=== PATIENT | female | born 1960 | race Caucasian/White ===

== ENCOUNTER → 2018-11-19 14:56 | Outpatient (CLI) | payer OTHER, SELFPAY ==
--- NOTE | 2018-11-19 | DI.MG.S_ITS ---
BILATERAL DIGITAL SCREENING MAMMOGRAM 3D/2D WITH CAD: 11/19/2018 Comparison is made to exams dated: 05/23/2016 mammogram, 12/15/2014 mammogram, and 09/29/2013 mammogram - [facility]. There are scattered fibroglandular elements in both breasts. Current study was also evaluated with a Computer Aided Detection (CAD) system. No significant masses, calcifications, or other findings are seen in either breast. There has been no significant interval change. IMPRESSION: NEGATIVE There is no mammographic evidence of malignancy. A 1 year screening mammogram is recommended. This exam was interpreted at Station ID: [id number]. NOTE: For mammograms, a report in lay terms will be sent to the patient. Approximately 15% of breast malignancies will not be visualized mammographically. In the management of a palpable breast mass, a negative mammogram must not discourage biopsy of a clinically suspicious lesion. Electronically Signed By: Marily valentin/fernando:11/19/2018 16:36:48 letter sent: Normal Exam ACR BI-RADS Category 1: Negative 3341F
== END ==
PROVIDERS: PCP Nurse Practitioner Family; Visit Provider Nurse Practitioner Family
DX: Z12.31 Encounter for screening mammogram for malignant neoplasm of breast (principal)
CPT/HCPCS: 77063; 77067

== ENCOUNTER → 2020-03-15 08:11 | Outpatient (CLI) | payer OTHER, SELFPAY ==
[2020-03-15 10:31] LABS: Hemoglobin A1C% w Est Avg Glu 6.1 % (4.0-6.0)
[2020-03-15 10:42] LABS: Alanine Aminotransferase 31 IU/L (<35); Albumin 4.5 g/dL (3.5-5.0); Albumin Globulin Ratio 1.6 (1.0-2.8); Alkaline Phosphatase 83 U/L (38-126); Aspartate Aminotransferase 30 IU/L (14-36); BUN Creatinine Ratio 23.6 (6-22); Bilirubin Total 0.6 mg/dL (0.2-1.3); Blood Urea Nitrogen 17 mg/dL (7-17); Calcium 9.4 mg/dL (8.4-10.2); Carbon Dioxide 27 mmol/L (22-32); Chloride 103 mmol/L (98-107); Cholesterol 179 mg/dL (140-199); Estimated Glomerular Filt Rate > 60.0 mL/min (>60); Globulin 2.9 g/dL (1.7-4.1); Glucose 111 mg/dL (80-110); HDL Cholesterol 45 mg/dL (40-60); HEMOLYSIS < 15 (0-50); LDL Cholesterol Calculated 115 mg/dL (<100); Potassium 4.3 mmol/L (3.4-5.1); Sodium 138 mmol/L (137-145); Total Protein 7.4 g/dL (6.3-8.2); Triglycerides 95 mg/dL (35-150)
[2020-03-15 10:58] LABS: Vitamin D 25 Hydroxy (D3) 39.8 ng/mL (30.0-100.0)
[2020-03-15 11:05] LABS: TSH w/ Reflex to FT4 3.86 uIU/mL (0.47-4.68)
== END ==
PROVIDERS: PCP Internal Medicine; Referring Provider Internal Medicine; Visit Provider Internal Medicine
DX: I10 Essential (primary) hypertension (principal); R73.03 Prediabetes; Z13.220 Encounter for screening for lipoid disorders; M85.80 Other specified disorders of bone density and structure, unspecified site; E55.9 Vitamin D deficiency, unspecified; I47.1 Supraventricular tachycardia
CPT/HCPCS: 36415; 80053; 80061; 82306; 83036; 84443

== ENCOUNTER → 2020-03-19 10:24 | Outpatient (CLI) | payer OTHER, SELFPAY ==
--- NOTE | 2020-03-19 | DI.RAD.S_ITS ---
PROCEDURE: XR WRIST LT MIN 3V INDICATIONS: left wrist pain TECHNIQUE: Four views of the wrist were acquired. COMPARISON: None. FINDINGS: Bones: No fractures or dislocations. No suspicious bony lesions. Scaphoid view: No trauma. Soft tissues: No suspicious soft tissue calcifications. 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 Dictated by: Shawn Child M.D. on 03/19/2020 at 11:02 Approved by: Shawn Child M.D. on 03/19/2020 at 11:21
== END ==
PROVIDERS: PCP Internal Medicine; Referring Provider Internal Medicine; Visit Provider Internal Medicine
DX: M25.532 Pain in left wrist (principal); M19.042 Primary osteoarthritis, left hand
CPT/HCPCS: 73110

== ENCOUNTER → 2020-03-30 09:43 | Outpatient (CLI) | payer OTHER, SELFPAY ==
--- NOTE | 2020-03-30 10:14 | DI.MG.S_ITS ---
Patient Name: GERALDINE COLLAZO date: 1960 Sex: F Attending Physician: Jose Indications: Date: 03/30/2020 10:06 At the request of: WALTER LOOMIS Procedure: MM screening mammo BI BILATERAL DIGITAL SCREENING MAMMOGRAM 3D/2D WITH CAD: 03/30/2020 CLINICAL: Routine screening. Comparison is made to exams dated: 11/19/2018 mammogram, 05/23/2016 mammogram, and 12/15/2014 mammogram - [facility]. There are scattered fibroglandular elements in both breasts. Current study was also evaluated with a Computer Aided Detection (CAD) system. No significant masses, calcifications, or other findings are seen in either breast. There has been no significant interval change. IMPRESSION: NEGATIVE There is no mammographic evidence of malignancy. A 1 year screening mammogram is recommended. This exam was interpreted at Station ID: [id number]. NOTE: For mammograms, a report in lay terms will be sent to the patient. Approximately 15% of breast malignancies will not be visualized mammographically. In the management of a palpable breast mass, a negative mammogram must not discourage biopsy of a clinically suspicious lesion. Electronically Signed By: Isma cuellar/fernando:03/30/2020 10:53:15 letter sent: Normal Exam ACR BI-RADS Category 1: Negative 3341F
== END ==
PROVIDERS: PCP Internal Medicine; Referring Provider Internal Medicine; Visit Provider Internal Medicine
DX: Z12.31 Encounter for screening mammogram for malignant neoplasm of breast (principal); M85.88 Other specified disorders of bone density and structure, other site; Z78.0 Asymptomatic menopausal state
CPT/HCPCS: 77063; 77067; 77080

== ENCOUNTER → 2020-05-31 18:08 | Outpatient (CLI) | payer OTHER, SELFPAY ==
--- NOTE | 2020-05-31 | DI.MRI.S_ITS ---
PROCEDURE: MR WRIST LT WO CON INDICATIONS: fracture of unspecified carpal bone, left TECHNIQUE: Noncontrast coronal proton density fast spin echo and T2 fast spin echo with fat saturation; coronal 3-D gradient echo, axial T1 spin echo and T2 fast spin echo with fat saturation, sagittal T1 spin echo through the wrist. COMPARISON: [facility], CR, XR WRIST LT MIN 3V, 03/19/2020, 10:18. FINDINGS: Image quality: Excellent. Bones and cartilage: There is a nondisplaced, slightly comminuted intra-articular fracture of the distal radius extending into the radiocarpal and distal radial ulnar joints without step-off at the articular surfaces. Mild associated osseous edema is seen. Cystic changes in the distal ulna may be related to a prior impaction injury or chronic degenerative changes. The ulnar styloid is grossly intact. There is neutral ulnar variance. The scaphoid is intact. Chronic degenerative cystic changes are seen in the trapezoid bone. Mild degenerative changes are seen in the 1st carpometacarpal joint and the triscaphe joint. Carpal ligaments: The scapholunate and lunotriquetral ligaments appear intact. In the absence of intra-articular contrast, the extrinsic carpal ligaments are not well identified. On sagittal images, the pisohamate ligament appears intact. Triangular fibrocartilage complex: The triangular fibrocartilage appears intact. Tendons and soft tissues: The carpal tunnel structures appear normal, including the median nerve. The ulnar nerve appears normal within Guyon's canal. All six extensor tendon compartments demonstrate normal morphology, without pathologic tendon sheath fluid. No soft tissue ganglion cysts. Nonspecific subcutaneous edema is seen dorsal to the ulnar head. IMPRESSION: 1. Nondisplaced comminuted intra-articular fracture of the distal radius is seen with mild surrounding edema. No step-off at the articular surface is seen. 2. Mild edema and cystic changes in the distal ulna may be related to chronic degenerative changes and/or trabecular bone injury. 3. No significant ligament or tendon injury is seen. 4. Mild degenerative changes in the triscaphe joint and the 1st carpometacarpal joint. Dictated by: Scot Moffett M.D. on 06/01/2020 at 10:14 Approved by: Scot Moffett M.D. on 06/01/2020 at 10:29
== END ==
PROVIDERS: PCP Internal Medicine; Referring Provider Internal Medicine; Visit Provider Internal Medicine
DX: S52.572A Other intraarticular fracture of lower end of left radius, initial encounter for closed fracture (principal); S62.102D Fracture of unspecified carpal bone, left wrist, subsequent encounter for fracture with routine healing; X58.XXXA Exposure to other specified factors, initial encounter
CPT/HCPCS: 73221

== ENCOUNTER → 2021-09-07 08:16 | Outpatient (CLI) | payer OTHER, SELFPAY ==
--- NOTE | 2021-09-07 | DI.MG.S_ITS ---
BILATERAL DIGITAL SCREENING MAMMOGRAM 3D/2D WITH CAD: 09/07/2021 CLINICAL: Routine screening. Comparison is made to exams dated: 03/30/2020 mammogram, 11/19/2018 mammogram, and 05/23/2016 mammogram - [facility]. There are scattered fibroglandular elements in both breasts. Current study was also evaluated with a Computer Aided Detection (CAD) system. No significant masses, calcifications, or other findings are seen in either breast. There has been no significant interval change. IMPRESSION: NEGATIVE There is no mammographic evidence of malignancy. A 1 year screening mammogram is recommended. This exam was interpreted at Station ID: [id number]. NOTE: For mammograms, a report in lay terms will be sent to the patient. Approximately 15% of breast malignancies will not be visualized mammographically. In the management of a palpable breast mass, a negative mammogram must not discourage biopsy of a clinically suspicious lesion. Electronically Signed By: Barber Bullard M.D., jr/fernando:09/09/2021 08:53:54 letter sent: Normal Exam ACR BI-RADS Category 1: Negative 3341F
== END ==
PROVIDERS: PCP Naturopath; Referring Provider Internal Medicine; Visit Provider Internal Medicine
DX: Z12.31 Encounter for screening mammogram for malignant neoplasm of breast (principal)
CPT/HCPCS: 77063; 77067

== ENCOUNTER 2022-11-09 22:01 | Emergency (ER) | payer OTHER, SELFPAY ==
[2022-11-09 22:24] VITALS: BP 168/86; PULSE 65; RESP 16; TEMP 36.4; O2SAT 98; BMI 31.4
--- NOTE | 2022-11-09 23:14 | ED.WOUNDLAC ---
HPI - Wound/Laceration General Chief Complaint: Wound/Laceration Stated Complaint: L pinky lac Time Seen by Provider: 11/09/22 23:14 Source: patient Mode of arrival: Ambulatory Limitations: no limitations History of Present Illness HPI narrative: Patient is a 61-year-old female. Left-hand dominant who is here for evaluation of a cut to the tip of her left little finger. She states that while she was making dinner this evening she cut it on a mandolin. They tried to stop the bleeding at home but were unable to. They did clean it with some peroxide. No other injuries from the event. Related Data Previous Rx's Medication Instructions Recorded erythromycin 5 mg/gram (0.5 %) eye 0.5 inch EYE-LEFT TID 05/14/22 ointment Conjunctivitis #7 grams polymyxin B sulfate 10,000 2 drp EYE-LEFT TID Bacterial 05/16/22 unit-trimethoprim 1 mg/mL eye conjunctivitis #10 mL drops (Polytrim) Allergies Allergy/AdvReac Type Severity Reaction Status Date / Time No Known Drug Allergies Allergy Unverified 05/14/22 18:13 Review of Systems Musculoskeletal Musculoskeletal: Reports system reviewed and no additional complaints, except as documented Integumentary/Breasts Skin/Breast: Reports system reviewed and no additional complaints, except as documented Neurologic Neurologic: Reports system reviewed and no additional complaints, except as documented Patient History Social History Smoking Status: Never smoker Smoking Status: Never smoker Exam Initial Vital Signs Initial Vital Signs: Vital Signs Temperature 97.6 F 11/09/22 22:24 Pulse Rate 65 11/09/22 22:24 Respiratory Rate 16 11/09/22 22:24 Blood Pressure 168/86 H 11/09/22 22:24 Pulse Oximetry 98 11/09/22 22:24 Oxygen Delivery Method Room Air 11/09/22 22:24 Back/Spine/Pelvis Other: Patient with a very superficial skin avulsion to the distal aspect of the left little finger. The finger nail is not involved. There is oozing from area. Neuro Sensory Exam: no sensory deficits noted Course Vital Signs Vital signs: Vital Signs - 8 hr 11/09/22 22:24 11/10/22 00:16 Temperature 97.6 F Pulse Rate 65 62 Respiratory Rate 16 16 Blood Pressure 168/86 H 178/84 H Pulse Oximetry 98 98 Oxygen Delivery Method Room Air Room Air MDM - Wound/Laceration MDM Narrative Medical decision making narrative: The cut is a skin avulsion of the distal aspect of the left little finger. Unfortunately this is not amenable to stitches. There is no nail involvement. I did put some Gelfoam over the area and then covered it with a bandage. She was observed for short period of time and there did not appear to be any more active bleeding is the bandage was not becoming soiled. Will discharge the patient home with instructions to leave this on for the next 24 hours and then can remove the bandage and wash her hands like normal. She is no indication for radiologic studies. Low suspicion for any sort of infection. No indication for antibiotics. Patient expressed understanding and agreement. Discharge Plan Departure Patient Disposition: Home Clinical Impression: Avulsion of skin Activity Restrictions/Additional Instructions: I recommend that you leave the bandage in place for at least 24 hours. After that you can take it off and cover it with a regular Band-Aid as needed. After the bandage is removed you can wash your hands like normal you can also use topical antibiotic ointment. Return to the emergency department for new symptoms. Prescriptions: No Action erythromycin 5 mg/gram (0.5 %) ointment 0.5 inch EYE-LEFT TID Qty: 7 0RF polymyxin B sulf-trimethoprim [Polytrim] 10,000 unit- 1 mg/mL drops 2 drp EYE-LEFT TID Qty: 10 0RF Rx Instructions: Treat x5 days Referrals: Radha Gary ND [Primary Care Provider] - Stand Alone Forms: Patient Portal/API
[2022-11-10 00:16] VITALS: BP 178/84; PULSE 62; RESP 16; O2SAT 98
== END 2022-11-10 00:19 | disposition home or self-care (01) ==
PROVIDERS: Emergency Provider Emergency Medicine; PCP Naturopath
DX: S61.217A Laceration without foreign body of left little finger without damage to nail, initial encounter (principal); W26.0XXA Contact with knife, initial encounter
CPT/HCPCS: 99281; 99282

== ENCOUNTER → 2023-04-24 08:24 | Outpatient (CLI) | payer OTHER, SELFPAY ==
--- NOTE | 2023-04-24 | DI.MG.S_ITS ---
BILATERAL DIGITAL SCREENING MAMMOGRAM 3D/2D WITH CAD: 04/24/2023 CLINICAL: Routine screening. Comparison is made to exams dated: 09/07/2021 mammogram, 03/30/2020 mammogram, and 11/19/2018 mammogram - [facility]. There are scattered areas of fibroglandular density in both breasts (category b / 25%-50% glandular tissue). Current study was also evaluated with a Computer Aided Detection (CAD) system. No significant masses, calcifications, or other findings are seen in either breast. There has been no significant interval change. IMPRESSION: NEGATIVE There is no mammographic evidence of malignancy. A 1 year screening mammogram is recommended. Based on the Tyrer Cuzick model (a risk assessment model) the patient's lifetime risk is 5.8% and her 10 year risk is 2.6%. According to the ACR, ACS, and NCCN guidelines, an annual breast MRI exam along with mammogram is recommended if the patient's lifetime risk is 20% or greater. This exam was interpreted at Station ID: [id number]. NOTE: For mammograms, a report in lay terms will be sent to the patient. Approximately 15% of breast malignancies will not be visualized mammographically. In the management of a palpable breast mass, a negative mammogram must not discourage biopsy of a clinically suspicious lesion. Electronically Signed By: Carlos tamez/fernando:04/24/2023 12:59:53 letter sent: Normal Exam ACR BI-RADS Category 1: Negative 3341F
== END ==
PROVIDERS: PCP Naturopath; Referring Provider Naturopath; Visit Provider Naturopath
DX: Z12.31 Encounter for screening mammogram for malignant neoplasm of breast (principal)
CPT/HCPCS: 77063; 77067

== ENCOUNTER 2024-02-09 10:21 | Day surgery (SDC) | payer OTHER, SELFPAY ==
--- NOTE | 2024-02-09 | PATH_ITS ---
[facility] Accession Number: [id number] No. of containers..01 Tissue . 01 Material submitted: . colon - ASCENDING . 01 Diagnosis: ASCENDING COLON, BIOPSY: Sessile serrated adenoma. [facility] 02/12/2024 1100 Local . 01 Electronically signed: . Larry Burciaga MD, PhD, Pathologist NPI- [id number] . 01 Gross description: . Received in formalin with two patient identifiers and ascending colon, are two meza soft tissue fragments, both measuring 0.3 cm in greatest dimension. Submitted in A1. ([id number]) /MRV 02/11/2024 1729 Local . 01 Pathologist provided ICD-10: D12.2 . 01 CPT . 824296 Specimen Comment: A courtesy copy of this report has been sent to [phone] Performed at: [address] [id number] MD aJmes Beltran MD Phone: [phone]
[2024-02-09 10:46] VITALS: BP 112/69; PULSE 71; RESP 16; TEMP 37.1; O2SAT 99
[2024-02-09] MEDS: LACTATED RINGERS 1,000 ML 42 ML IV (11:01)
--- NOTE | 2024-02-09 11:26 | PM.HP.1 ---
History of Present Illness History of Present Illness Date Patient Seen: 02/09/24 Time Patient Seen: 11:28 Chief complaint: SD Narrative: 63-year-old healthy woman here for screening colonoscopy. Last colonoscopy 10 years ago normal. No family history of colon cancer. No abdominal concerns today. [facility] Social History Smoking Status: Never smoker alcohol intake: current Meds Home Medications and Allergies Allergies Allergy/AdvReac Type Severity Reaction Status Date / Time No Known Drug Allergies Allergy Verified 02/09/24 10:45 Exam Vital Signs (past 8 hours): - 02/09/24 10:46 Temperature 98.7 F Pulse Rate 71 Respiratory Rate 16 Blood Pressure 112/69 Pulse Oximetry 99 Oxygen Delivery Method Room Air Oxygen Delivery Method Room Air Narrative Exam Narrative: General adult woman alert oriented no acute distress Chest nonlabored respiration Extremities warm well perfused Assessment & Plan Assessment & Plan narrative: The patient requires colorectal screening and colonoscopy is recommended. Technical details were discussed. Risks, benefits, alternatives explained. Risks including but not limited to myocardial infarction, aspiration, bleeding, pain, missed lesion, incomplete examination, need for further radiographic studies, intestinal injury, and need for major abdominal surgery were discussed. All questions were answered to their satisfaction, and they are in agreement with this plan. Time-Based Coding :: [TOTAL MINUTES] spent with patient and on the chart (including review of chart, obtaining history, exam, reviewing outside data, placing orders, documenting exam and treatment plan, and counseling patient) on [DATE].
[2024-02-09 12:04] VITALS: BP 108/57; PULSE 68; RESP 12; TEMP 36.9; O2SAT 95
--- NOTE | 2024-02-09 12:06 | P.OP.COLON_ITS ---
Operative Date/Time/Diagnoses Date of procedure: 02/09/24 Time of procedure: 12:06 Pre-op diagnosis: Colorectal screening Post-op diagnosis: other (Colonic polyp x1) Procedure & Clinicians Study performed: Colonoscopy with polypectomy and tattoo application Same procedure as scheduled: Yes Indications: 63-year-old woman here for screening colonoscopy Surgeon: Ken Cummins Procedure Notes Procedure in detail: The history and physical was performed/updated and the patient is ASA class is 2. The procedure was discussed in detail with the patient. Potential risks complications including infection, bleeding, missed diagnosis, perforation, need for surgery, and were explained. Their questions were answered and informed consent was obtained. Patient was brought to the procedure room and placed standard monitoring equipment. The patient's vital signs were monitored continuously throughout the entire procedure. Prior to starting time-out was performed. The patient was placed in the left lateral recumbent position. Procedural sedation was administered by anesthesia. Examination began with a thorough inspection of the perianal area there was no evidence of fissures, fistulae, external hemorrhoids or cutaneous malignancy. The colonoscopy scope was then placed into the anal canal and was advanced to the cecum, which was identified by the ileocecal valve, the appendiceal orifice and the confluence of the taenia. The scope was then slowly withdrawn examining colon thoroughly in all directions, irrigating it of any residual stool. The scope was retroflexed within the rectum The patient tolerated the procedure well. They will be discharged once criteria are met. The prep was of good/excellent quality. The withdrawl time was 7 minutes. FINDINGS * Ascending colon 8 mm sessile polyp within a mucosal fold. Biopsy of the polyp was performed with Jumbo forceps but the entirety of it could not be removed. Tattoo was placed distal to the lesion. * Sigmoid diverticulosis * Internal hemorrhoids Specimen(s): other (Ascending colon polyp) Impression: Colonic polyp Post-procedure Plan for aftercare: Follow-up is dependent on pathology findings Disposition: same day surgery
[2024-02-09 12:09] VITALS: BP 97/52; PULSE 72; RESP 14; O2SAT 97
[2024-02-09 12:13] VITALS: BP 111/66; PULSE 67; RESP 14; O2SAT 98
[2024-02-09 12:18] VITALS: BP 105/66; PULSE 55; RESP 16; TEMP 36.6; O2SAT 99
== END 2024-02-09 12:29 | disposition home or self-care (01) ==
PROVIDERS: PCP Naturopath; Referring Provider Surgery; Visit Provider Surgery
PROC: 0DJD8ZZ Inspection of Lower Intestinal Tract, Via Natural or Artificial Opening Endoscopic (ICD-10-PCS; CPT 45378; principal; 2024-02-09 11:15)
DX: Z12.11 Encounter for screening for malignant neoplasm of colon (principal); K57.30 Diverticulosis of large intestine without perforation or abscess without bleeding; K64.8 Other hemorrhoids; D12.2 Benign neoplasm of ascending colon
CPT/HCPCS: 45381; 45380; J2704

== ENCOUNTER → 2024-11-28 10:45 | Outpatient (CLI) | payer OTHER, SELFPAY ==
--- NOTE | 2024-11-28 10:46 | DI.MG.S_ITS ---
MM screening mammo BI: 11/28/2024. BI-RADS: 1 CLINICAL: 64-year old female for bilateral screening mammogram. Tyrer-Cuzick lifetime risk of 5.4%. No personal or first-degree family history of breast cancer. PRIOR EXAMS 04/24/2023, 09/07/2021, 03/30/2020, 11/19/2018, 05/23/2016, 12/15/2014. MAMMOGRAPHY TECHNIQUE: 2D and 3D (tomosynthesis) digital mammographic views obtained, with additional images as needed for full coverage. Current study was also evaluated with a Computer Aided Detection (CAD) system. DENSITY B. There are scattered areas of fibroglandular density. MAMMOGRAPHY FINDINGS Bilateral: No suspicious mass, asymmetry, microcalcification, or other abnormality seen. IMPRESSION: * No evidence of malignancy. RECOMMENDATIONS Bilateral * Annual screening mammography. OVERALL ASSESSMENT CATEGORY BI-RADS-1: Negative. The [employer] recommends annual screening mammography beginning at age 40 for women with average risk of breast cancer. ELECTRONICALLY SIGNED: Isma Weiss M.D. on 11/28/2024 at 06:51:53 PM PT Interpreting Station ID: [id number]
--- NOTE | 2024-11-28 10:46 | DI.RAD.S_ITS ---
PROCEDURE: XR DEXA AXIAL SKELETON INDICATIONS: OSTEOPENIA COMPARISON: [facility], CR, XR DEXA AXIAL SKELETON, 03/30/2020, 10:17. FINDINGS: Lumbar Spine: Bone mineral density 0.81 g/cm2, T score -2.2, previously -1.4. Left Femoral Neck: Bone mineral density 0.68 g/cm2, T score -1.5, previously -0.7. Left Hip: Bone mineral density 0.88 g/cm2, T score -0.5, previously 0.2. Fracture Risk Calculation (when applicable): 10-year fracture risk of a major osteoporotic fracture 8.5 percent and of a hip fracture 0.9 percent. (T score greater or equal to -1.0 to: NORMAL) (T score from -1.1 to -2.4: OSTEOPENIA) (T score less than or equal to -2.5: OSTEOPOROSIS) IMPRESSION: Osteopenia. T-scores have declined compared to prior Follow-up guidelines as follows: Osteoporosis: Consider a repeat DEXA and Vertebral Fracture Assessment (VFA) exam in 2 years or sooner if medically necessary, to reassess this patient's status. Osteopenia: Consider a repeat DEXA in 2-3 years to reassess this patient's status, or if there is a new clinical indication. Normal: Consider a repeat DEXA in 5 years or sooner, or if there is a new clinical indication. All treatment decisions require clinical judgment and consideration of individual patient factors, including patient preferences, comorbidities, previous drug use, risk factors not captured in the FRAX model (e.g., frailty, falls, vitamin D deficiency, increased bone turnover, interval significant decline in bone density ) and possible under- or over-estimation of fracture risk by FRAX. In addition, the NOF Guide recommends that FDA-approved medical therapies be considered in postmenopausal women and men age >= 50 years with a: * Hip or vertebral (clinical or morphometric) fracture * T-score of <=-2.5 at the spine or hip * Ten-year fracture probability by FRAX of >= 3% for hip fracture or >=20% for major osteoporotic fracture. Dictated by: Carlos Perez M.D. on 11/28/2024 at 15:54 Approved by: Carlos Perez M.D. on 11/28/2024 at 15:55
== END ==
PROVIDERS: PCP Family Medicine; Referring Provider Naturopath; Visit Provider Naturopath
DX: Z12.31 Encounter for screening mammogram for malignant neoplasm of breast (principal); M85.89 Other specified disorders of bone density and structure, multiple sites
CPT/HCPCS: 77063; 77067; 77080

== ENCOUNTER 2025-03-02 08:09 | Day surgery (SDC) | payer OTHER, SELFPAY ==
--- NOTE | 2025-03-02 | PATH_ITS ---
[facility] Accession Number: [id number] No. of containers..01 Tissue . 01 Material submitted: . colon - ASCENDING POLYPS . 01 Diagnosis: ASCENDING POLYPS, BIOPSY: Sessile serrated lesion(s). MRV 03/09/2025 1437 Local . 01 Electronically signed: . Ajay Sullivan MD, Dermatopathologist NPI- [id number] . 01 Gross description: . ASCENDING POLYPS: Received in formalin are multiple fragment(s) of meza, soft tissue measuring 0.3 x 0.3 x 0.2 cm to 0.9 x 0.6 x 0.3 cm submitted entirely in 1 cassette(s) /TY 03/08/2025 0034 Local . 01 Pathologist provided ICD-10: D12.2 . 01 CPT . 211131 Specimen Comment: A courtesy copy of this report has been sent to [phone] Performed at: [address] [address], [place], [place] [id number] MD James Beltran MD Phone: [phone]
[2025-03-02 08:29] VITALS: BP 131/79; PULSE 75; RESP 16; TEMP 36.3; O2SAT 98
[2025-03-02] MEDS: LACTATED RINGERS 1,000 ML 100 ML IV (08:37)
--- NOTE | 2025-03-02 09:22 | P.HP_ITS ---
History of Present Illness History of Present Illness Date Patient Seen: 03/02/25 Time Patient Seen: 09:22 Chief complaint: SDC Narrative: Stephanie is a 64-year-old woman who had a sessile serrated adenoma removed last year by Dr. Cummins. See notes for details. [facility] Medical History (Updated 03/02/25 @ 09:23 by Toni Conde MD) Pre-diabetes Osteopenia Varicose vein of leg Bilateral bunions Sessile colonic polyp Social History Smoking Status: Never smoker alcohol intake: current Meds Home Medications and Allergies Home Medications ?Medication ?Instructions ?Recorded ?Confirmed ?Type sodium,potassium,mag sulfates 17.5 See Rx Instructions PO .COMPLEX 12/13/24 03/02/25 Rx gram-3.13 gram-1.6 gram oral soln #354 mL (Suprep Bowel Prep Kit) Allergies Allergy/AdvReac Type Severity Reaction Status Date / Time No Known Drug Allergies Allergy Verified 03/02/25 08:23 Exam Vital Signs (past 8 hours): - 03/02/25 08:29 Temperature 97.3 F L Pulse Rate 75 Respiratory Rate 16 Blood Pressure 131/79 Pulse Oximetry 98 Oxygen Delivery Method Room Air Oxygen Delivery Method Room Air Const General: healthy appearing Assessment & Plan Assessment and plan (1) History of adenomatous polyp: Status: Acute Plan Colonoscopy Time-Based Coding :: [TOTAL MINUTES] spent with patient and on the chart (including review of chart, obtaining history, exam, reviewing outside data, placing orders, documenting exam and treatment plan, and counseling patient) on [DATE]. PROFEE Comber Setter Document charge(s): No
--- NOTE | 2025-03-02 09:57 | PM.OP.COLON ---
Operative Date/Time/Diagnoses Date of procedure: 03/02/25 Time of procedure: 09:57 Pre-op diagnosis: History of a sessile serrated adenoma Post-op diagnosis: same Procedure & Clinicians Study performed: Colonoscopy Same procedure(s) as scheduled: Yes Surgeon: Toni Conde Anesthesia Type: MAC +/- Procedure Notes Procedure in detail: Surgeon: Toni Conde MD Anesthesia: Simin Maru TECHNICAL COMMUNICATION TEACHER Procedure: The patient was brought to the endoscopy suite, placed in left lateral decubitus position. The patient was connected to monitoring devices. A time-out was performed. Sedation was administered. Once the patient was adequately sedated, a digital rectal exam was performed and was normal. The scope was then inserted and advanced to the cecum where the appendiceal orifice was identified and photographed. The scope was then slowly withdrawn over greater than 6 minutes. The mucosa was thoroughly inspected. The tattoo ink was visualized in the ascending colon. There was no evidence of residual polyp at the site of the tattoo ink however there were 4 small polyps in close proximity to the tattoo ink. The largest of these was about 1 cm. They were all removed with cold snare and sent together as ascending colon polyps. The scope was retroflexed in the rectum. No other abnormalities were found. The scope was straightened and removed. The patient was awakened and brought to recovery. Scope withdrawal time: 11 minutes Sedation time: 16 minutes EBL: 5 mL Findings: 4 polyps near the tattoo the ascending colon Post-procedure Disposition: PACU
[2025-03-02 09:58] VITALS: BP 112/68; PULSE 73; RESP 16; TEMP 36.2; O2SAT 98
[2025-03-02 10:02] VITALS: BP 115/74; PULSE 79; RESP 16; O2SAT 98
[2025-03-02 10:06] VITALS: BP 116/74; PULSE 73; RESP 16; O2SAT 98
[2025-03-02 10:07] VITALS: BP 110/70; PULSE 66; RESP 16; TEMP 36.2; O2SAT 98
== END 2025-03-02 10:13 | disposition home or self-care (01) ==
PROVIDERS: PCP Family Medicine; Referring Provider Family Medicine; Visit Provider Surgery
PROC: 0DJD8ZZ Inspection of Lower Intestinal Tract, Via Natural or Artificial Opening Endoscopic (ICD-10-PCS; CPT 45378; principal; 2025-03-02 09:15)
DX: Z12.11 Encounter for screening for malignant neoplasm of colon (principal); Z86.0101 Personal history of adenomatous and serrated colon polyps; D12.2 Benign neoplasm of ascending colon
CPT/HCPCS: 45385; J2704